=== PATIENT | female | born 1955 ===

== ENCOUNTER 2020-03-03 11:45 | Inpatient (IN) | payer OTHER ==
[~2020-03-03] VITALS: Ht 167.6 cm; Wt 77.1 kg
[2020-03-03] MEDS ORDERED: SYNTHROID112 MCG PO (12:32)
[2020-03-03] MEDS ORDERED: CRESTOR10 MG PO (12:32)
== END 2020-03-11 13:18 | disposition home or self-care (01) | DRG 331 ==
LOC: ADM 11:45 → O/R 03-08 04:30 → SURH 03-08 04:30 → ADM 03-08 11:45 → SURH 03-08 11:45 → EDSTATUS 03-08 11:45 → SURH 03-08 14:30 → SURG 03-08 15:13 → SURH 03-08 16:45
PROVIDERS: ADMIT Colon & Rectal Surgery
PROC: 07TB4ZZ Resection of Mesenteric Lymphatic, Percutaneous Endoscopic Approach (ICD-10-PCS; 2020-03-08)
PROC: 0DTF4ZZ Resection of Right Large Intestine, Percutaneous Endoscopic Approach (ICD-10-PCS; principal; 2020-03-08 14:30)
DX: C18.0 Malignant neoplasm of cecum (principal); R59.0 Localized enlarged lymph nodes; K66.0 Peritoneal adhesions (postprocedural) (postinfection); E03.8 Other specified hypothyroidism

== ENCOUNTER 2020-03-12 13:41 | Inpatient (IN) | payer OTHER ==
[~2020-03-12] VITALS: Ht 167.6 cm; Wt 73.9 kg
[~2020-03-12 13:41] MED LIST: CRESTOR10 MG PO; SYNTHROID112 MCG PO
== END 2020-03-16 15:20 | disposition home or self-care (01) | DRG 392 ==
LOC: ER 13:41 → SURH 18:09
PROVIDERS: ADMIT Colon & Rectal Surgery
PROC: BW21ZZZ Computerized Tomography (CT Scan) of Abdomen and Pelvis (ICD-10-PCS; principal; 2020-03-12)
PROC: 0DH67UZ Insertion of Feeding Device into Stomach, Via Natural or Artificial Opening (ICD-10-PCS; 2020-03-12)
PROC: 3E0G76Z Introduction of Nutritional Substance into Upper GI, Via Natural or Artificial Opening (ICD-10-PCS; 2020-03-12)
DX: K91.0 Vomiting following gastrointestinal surgery (principal); K56.7 Ileus, unspecified; F17.200 Nicotine dependence, unspecified, uncomplicated; E03.8 Other specified hypothyroidism; E86.0 Dehydration; E87.8 Other disorders of electrolyte and fluid balance, not elsewhere classified